=== PATIENT | male | born 1980 | race Caucasian/White ===

== ENCOUNTER → 2017-08-08 | Outpatient (CLI) | payer OTHER ==
[~2017-08-08] MED LIST: ASPIR LOW81 MG PO; IMDUR SA30 MG PO; LIPITOR10 MG PO; ZESTORETIC 10-1 EACH PO
== END | disposition home or self-care (01) ==
LOC: CARD 03:43
DX: R07.9 Chest pain, unspecified (principal)

== ENCOUNTER → 2023-03-31 | Outpatient (CLI) | payer OTHER | END | disposition home or self-care (01) | LOC: CARD 03-22 10:30 | PROVIDERS: ATTEND Internal Medicine Nephrology | DX: Q23.1 Congenital insufficiency of aortic valve (principal); R01.1 Cardiac murmur, unspecified ==